=== PATIENT | female | born 1950 | race Caucasian/White ===

== ENCOUNTER → 2021-11-27 | Outpatient (CLI) | payer OTHER ==
[2021-11-29 13:02] LABS: Stool Occult Blood Guaiac 1 Neg (Neg)
== END ==
LOC: LAB SHORT 07:30
PROVIDERS: Physician Assistant Medical
DX: Z12.11 Encounter for screening for malignant neoplasm of colon (principal)
CPT/HCPCS: 82270

== ENCOUNTER → 2024-01-03 | Outpatient (CLI) | payer MEDICARE ==
[2024-01-03 09:31] LABS: Source, Urine Clean Catch
[2024-01-03 11:48] LABS: Appearance, Urine Turbid (Clear); Bilirubin, Urine Neg (Neg); Blood, Urine 4+ (Neg); Color, Urine Yellow (P-Yellow); Glucose Qualitative, Urine Neg (Neg); Ketones, Urine Neg (Neg); Leukocyte Esterase, Urine 1+ (Neg); Nitrite, Urine Neg (Neg); Protein, Urine 2+ (Neg); Specific Gravity, Urine 1.025 (1.003-1.022); Urobilinogen, Urine NORM (Normal)
[2024-01-03 12:00] LABS: Amorphous Heavy (0-Heavy); Bacteria Few /hpf; Mucus Light (0-Heavy); Squamous Epithelial Cells Few /hpf (Few)
== END | disposition home or self-care (01) ==
LOC: LAB 09:29 → LAB SHORT 09:29
PROVIDERS: Family Medicine
DX: R35.0 Frequency of micturition (principal)
CPT/HCPCS: 81001; 87086

== ENCOUNTER 2024-04-29 09:24 | Day surgery (SDC) | payer MEDICARE ==
[~2024-04-29] VITALS: Ht 160 cm; Wt 88.5 kg
[2024-04-29] VITALS (9 sets, daily range): BP systolic 143–167; BP diastolic 70–85
[2024-04-29] MEDS ORDERED: Lactated Ringer's 1,000 ML IV SCH (12:35)
[2024-04-29] MEDS ORDERED: Prinivil10 MG PO (12:38)
[2024-04-29] MEDS ORDERED: Lipitor10 MG PO (12:38)
--- NOTE | 2024-04-29 13:10 | NUR ---
Ambulatory in Day Surgery. History, Chart, Medications and Allergies reviewed before start of procedure. Lungs clear T/O to Auscultation. Patient confirms NPO status and agrees with scheduled surgery. Pre-Op teaching done. Pt verbalizes understanding. Patient States Post-Procedure ride home has been arranged. PT BELONGINGS PLACED UNDERNEATH [facility]AFEKEEP[facility].
[2024-04-29] MEDS ORDERED: Methylene Blue 1% 100 MG/10 ML VIAL ONE (14:07)
[2024-04-29] MEDS ORDERED: Bupivacaine 0.5% HCl 5 MG/ML 30MLVIAL ONE (14:07)
[2024-04-29] MEDS ORDERED: CeFAZolin Sodium 2,000 MG in NS 100 ML IV SCH (14:10)
[2024-04-29] MEDS ORDERED: CeFAZolin Sodium 2,000 MG VIAL ONE (14:16)
[2024-04-29] MEDS ORDERED: propofoL 20 ML IV ONE (14:23)
[2024-04-29] MEDS ORDERED: FentaNYL Citrate 50 MCG/ML 2 ML Injection ONE (14:32)
[2024-04-29] MEDS ORDERED: Ondansetron HCl 2 MG / ML 2ML Vial ONE (15:47)
[2024-04-29] MEDS ORDERED: HYDROcodone 5-APAP 325 TAB PO PRN (16:45)
--- NOTE | 2024-04-29 17:42 | NUR ---
Discharge instructions reviewed with patient. Patient verbalizes understanding. Copy given to patient to take home. Dressing c/d/i. Breast binder in place, ice pack provided. Prescription sent electronically. Patient States Post-Procedure ride home has been arranged. Discharged via wheelchair to private car for ride home.
== END 2024-04-29 17:40 | disposition home or self-care (01) ==
LOC: ORSCMMR 09:24 → NM 10:30 → ORSCMMR 17:40
PROVIDERS: Surgery
PROC: 07B50ZX Excision of Right Axillary Lymphatic, Open Approach, Diagnostic (ICD-10-PCS; principal; 2024-04-29 11:30)
PROC: 0HBT0ZZ Excision of Right Breast, Open Approach (ICD-10-PCS; principal; 2024-04-29 11:30)
DX: C50.411 Malignant neoplasm of upper-outer quadrant of right female breast (principal); Z17.0 Estrogen receptor positive status [ER+]; I12.9 Hypertensive chronic kidney disease with stage 1 through stage 4 chronic kidney disease, or unspecified chronic kidney disease; N18.9 Chronic kidney disease, unspecified; E78.5 Hyperlipidemia, unspecified; E66.9 Obesity, unspecified; Z68.34 Body mass index [BMI] 34.0-34.9, adult; Z79.899 Other long term (current) drug therapy; F17.210 Nicotine dependence, cigarettes, uncomplicated
CPT/HCPCS: 38792; 88307; 88342; A9270; A9520; J0690; J2405; J2704; J3010; J7120; Q9968

== ENCOUNTER → 2024-09-11 | Outpatient (CLI) | payer MEDICARE ==
[~2024-09-11] MED LIST: Lipitor10 MG PO; Prinivil10 MG PO
[2024-09-12 13:14] LABS: Candida Group, PCR NOT DETECTED (NOT DETECT); Candida glabrata-krusei, PCR NOT DETECTED (NOT DETECT)
[2024-09-12 14:06] LABS: Bacterial Vaginosis PCR Positive (NEGATIVE)
== END ==
LOC: LAB SHORT 17:02 → LAB 17:02
PROVIDERS: Nurse Practitioner Family
DX: N94.89 Other specified conditions associated with female genital organs and menstrual cycle (principal); R35.0 Frequency of micturition
CPT/HCPCS: 81515; 87086

== ENCOUNTER 2025-04-05 03:08 | Emergency (ER) | payer MEDICARE ==
[~2025-04-05] VITALS: Ht 160 cm; Wt 97.5 kg
[2025-04-05 03:40] VITALS: BP 220/105
[2025-04-05] MEDS ORDERED: VENLAFAXINE HC225 MG PO (03:42)
[2025-04-05] MEDS ORDERED: ANASTROZOLE1 M7 PO (03:42)
[2025-04-05] MEDS ORDERED: ESTRADIOL42.5 GM VG (03:43)
[2025-04-05 04:08] LABS: BASOPHILS ABSOLUTE AUTO 0.05 K/mm3 (0.00-0.23); BASOPHILS PERCENT AUTO 1 % (0-2); EOSINOPHILS ABSOLUTE AUTO 0.20 K/mm3 (0.00-0.68); EOSINOPHILS PERCENT AUTO 2 % (0-6); Hematocrit 39.4 % (33.0-51.0); Hemoglobin 13.3 g/dL (11.5-16.0); IMMATURE GRAN ABSOLUTE AUTO 0.05 K/mm3 (0.00-0.10); IMMATURE GRAN PERCENT AUTO 1 % (0-1); LYMPHOCYTES ABSOLUTE AUTO 1.72 K/mm3 (0.84-5.20); LYMPHOCYTES PERCENT AUTO 20 % (21-46); MONOCYTES ABSOLUTE AUTO 0.65 K/mm3 (0.16-1.47); MONOCYTES PERCENT AUTO 8 % (4-13); Mean Corpuscular HGB Conc 33.8 g/dL (31.5-36.5); Mean Corpuscular Volume 94 fL (80-100); NEUTROPHILS ABSOLUTE AUTO 5.86 K/mm3 (1.96-9.15); NEUTROPHILS PERCENT AUTO 69 % (41-73); NRBC ABSOLUTE 0.00 K/mm3 (0.00-0.02); NRBC Auto 0.0 /100 WBC (0.0-0.2); Platelet Count 196 K/mm3 (150-400); RDW Coefficient Variation 13.1 % (11.7-14.2); RDW Standard Deviation 45.0 fL (35.1-46.3)
[2025-04-05 04:29] LABS: Alanine Aminotransfer (ALT/SGP 28.0 U/L (12-78); Albumin, Blood 3.6 g/dL (3.4-5.0); Albumin/Globulin Ratio 0.8 (0.8-1.8); Anion Gap 8.0 mmol/L (3-11); Aspartate Aminotrans (AST/SGOT 19.0 U/L (12-37); Bilirubin, Total 0.6 mg/dL (0.1-1.0); Blood Urea Nitrogen 12.0 mg/dL (8-24); CO2, Blood 25.0 mmol/L (21-32); Calcium, Blood 8.4 mg/dL (8.5-10.1); Chloride, Blood 109.0 mmol/L (98-108); Creatinine, Blood 1.2 mg/dL (0.40-1.00); Globulin, Blood 4.7 g/dL (2.2-4.0); Glucose, Blood 116.0 mg/dL (70-99); Magnesium, Blood 2.1 mg/dL (1.6-2.4); Potassium, Blood 4.1 mmol/L (3.5-5.5); Sodium, Blood 138.0 mmol/L (136-145); Total Protein, Blood 8.3 g/dL (6.4-8.2)
== END 2025-04-05 05:57 | disposition home or self-care (01) ==
LOC: ER 03:08
PROVIDERS: Student in an Organized Health Care Education/Training Program
DX: I10 Essential (primary) hypertension (principal); E78.5 Hyperlipidemia, unspecified; Z79.899 Other long term (current) drug therapy
CPT/HCPCS: 80053; 83735; 84484; 85025; 93005; 93010; 99283-25; A9270

== ENCOUNTER → 2025-08-10 | Outpatient (CLI) | payer MEDICARE ==
[~2025-08-10] MED LIST changes: +ANASTROZOLE1 M7 PO; +ESTRADIOL42.5 GM VG; +VENLAFAXINE HC225 MG PO
[2025-08-10 14:39] LABS: BASOPHILS ABSOLUTE AUTO 0.06 K/mm3 (0.00-0.23); BASOPHILS PERCENT AUTO 1 % (0-2); EOSINOPHILS ABSOLUTE AUTO 0.22 K/mm3 (0.00-0.68); EOSINOPHILS PERCENT AUTO 3 % (0-6); Hematocrit 41.3 % (33.0-51.0); Hemoglobin 13.5 g/dL (11.5-16.0); IMMATURE GRAN ABSOLUTE AUTO 0.02 K/mm3 (0.00-0.10); IMMATURE GRAN PERCENT AUTO 0 % (0-1); LYMPHOCYTES ABSOLUTE AUTO 1.77 K/mm3 (0.84-5.20); LYMPHOCYTES PERCENT AUTO 24 % (21-46); MONOCYTES ABSOLUTE AUTO 0.67 K/mm3 (0.16-1.47); MONOCYTES PERCENT AUTO 9 % (4-13); Mean Corpuscular HGB Conc 32.7 g/dL (31.5-36.5); Mean Corpuscular Volume 96 fL (80-100); NEUTROPHILS ABSOLUTE AUTO 4.66 K/mm3 (1.96-9.15); NEUTROPHILS PERCENT AUTO 63 % (41-73); NRBC ABSOLUTE 0.00 K/mm3 (0.00-0.02); NRBC Auto 0.0 /100 WBC (0.0-0.2); Platelet Count 194 K/mm3 (150-400); RDW Coefficient Variation 13.2 % (11.7-14.2); RDW Standard Deviation 45.9 fL (35.1-46.3)
[2025-08-10 16:11] LABS: Alanine Aminotransfer (ALT/SGP 34 U/L (12-78); Albumin, Blood 4.0 g/dL (3.4-5.0); Albumin/Globulin Ratio 0.9 (0.8-1.8); Anion Gap 11 mmol/L (3-11); Aspartate Aminotrans (AST/SGOT 26 U/L (12-37); Bilirubin, Total 0.8 mg/dL (0.1-1.0); Blood Urea Nitrogen 10 mg/dL (8-24); CHOL/HDL RATIO 4.1; CO2, Blood 23 mmol/L (21-32); Calcium, Blood 9.0 mg/dL (8.5-10.1); Chloride, Blood 107 mmol/L (98-108); Cholesterol 178 mg/dL (50-200); Creatinine, Blood 1.22 mg/dL (0.40-1.00); Globulin, Blood 4.3 g/dL (2.2-4.0); Glucose, Blood 129 mg/dL (70-99); HDL Cholesterol 43 mg/dL (>39); LDL/HDL RATIO 1.9; Low Density Lipoprotein Chol 83 mg/dL (0-110); Potassium, Blood 4.2 mmol/L (3.5-5.5); Sodium, Blood 137 mmol/L (136-145); Total Protein, Blood 8.3 g/dL (6.4-8.2); Triglycerides 260 mg/dL (30-160); Very Low Density Lipoprot Chol 52 mg/dL (6-32)
== END ==
LOC: LAB SHORT 08:50 → LAB 08:50
PROVIDERS: Nurse Practitioner Family
DX: E78.2 Mixed hyperlipidemia (principal); N18.32 Chronic kidney disease, stage 3b; I12.9 Hypertensive chronic kidney disease with stage 1 through stage 4 chronic kidney disease, or unspecified chronic kidney disease
CPT/HCPCS: 80053; 80061; 85025